=== PATIENT | male | born 1975 | race Caucasian/White ===

== ENCOUNTER 2019-12-16 16:20 | Emergency (ER) | payer MEDICAID, OTHER ==
[~2019-12-16] VITALS: Ht 177.8 cm; Wt 147.8 kg
[2019-12-16 16:20] VITALS: BP 129/76
[2019-12-16] MEDS ORDERED: FLUORESCEIN OPHTH 1 MG STRIP OS ONE (17:00)
[2019-12-16] MEDS: PROPARACAINE 0.5% OPHTH SOL 15ML OS ONE ×2 (17:14→17:15)
[2019-12-16] MEDS ORDERED: ERYTHROMYCIN OPHTH OINT OS ONE (17:45)
== END 2019-12-16 17:58 | disposition home or self-care (01) ==
LOC: M ED 16:20
DX: T15.02XA Foreign body in cornea, left eye, initial encounter (principal); T15.12XA Foreign body in conjunctival sac, left eye, initial encounter; Y92.9 Unspecified place or not applicable; Y93.9 Activity, unspecified

== ENCOUNTER 2021-03-19 11:49 | Outpatient (RCR) | payer OTHER ==
[~2021-03-19 11:49] MED LIST: ELIQ5TAB; LISI10TA15
== END 2021-03-20 ==
LOC: M PT 11:49
PROVIDERS: ATTEND Nurse Practitioner
DX: R60.0 Localized edema (principal); I82.502 Chronic embolism and thrombosis of unspecified deep veins of left lower extremity

== ENCOUNTER 2021-03-31 08:24 | Outpatient (RCR) | payer OTHER ==
[~2021-03-31 08:24] MED LIST changes: -LISI10TA15; +LISI10TA24
== END 2021-04-20 ==
LOC: M PT 08:24
PROVIDERS: ATTEND Nurse Practitioner
DX: R60.0 Localized edema (principal); I82.502 Chronic embolism and thrombosis of unspecified deep veins of left lower extremity

== ENCOUNTER 2021-09-28 08:24 | Outpatient (RCR) | payer OTHER | END 2021-10-18 | LOC: M PT 08:24 | PROVIDERS: ATTEND Nurse Practitioner | DX: I82.502 Chronic embolism and thrombosis of unspecified deep veins of left lower extremity (principal); R60.0 Localized edema ==